=== PATIENT | female | born 1995 | race African-American/Black ===

== ENCOUNTER 2024-07-17 09:57 | Outpatient (CLI) | payer OTHER, SELFPAY ==
[2024-07-17 11:10] LABS: HIV 1/2 Ab P24 Ag Result Negative (Negative)
[2024-07-17 11:17] LABS: Hepatitis B Surface Antigen Negative (Negative)
[2024-07-17 11:23] LABS: HAV RESULT Negative (Negative); Hepatitis B Core IgM Result Negative (Negative)
[2024-07-17 11:34] LABS: Hepatitis C Virus Antibody Negative (Negative)
[2024-07-17 14:07] LABS: Rapid Plasma Reagin Non-Reactive (NonReactive)
== END 2024-07-17 09:58 | disposition home or self-care (01) ==
LOC: ANHLAB 09:58
PROVIDERS: Visit Provider Student in an Organized Health Care Education/Training Program
DX: Z20.2 Contact with and (suspected) exposure to infections with a predominantly sexual mode of transmission (principal)
CPT/HCPCS: 36415; 80074; 86592; 86703; G0432